=== PATIENT | male | born 1960 | race Two or more races ===

== ENCOUNTER 2017-02-27 11:49 | Emergency (ER) | payer MEDICAID, OTHER ==
[~2017-02-27] VITALS: Ht 177.8 cm; Wt 93.0 kg
--- NOTE | 2017-02-27 12:08 | NUR ---
CALLED RT FOR BREATHING TREATMENT
[2017-02-27] MEDS ORDERED: DEXAMETHASONE SOD PHOSPHATE 10 MG/ML VIAL ONE (12:12)
[2017-02-27] MEDS: DEXAMETHASONE SOD PHOSPHATE 10 MG/ML VIAL MC ONE (12:15)
[2017-02-27] MEDS ORDERED: IPRATROPIUM NEB FS 0.5 MG/2.5 ML AMPUL.NEB ONE (12:17)
[2017-02-27] MEDS ORDERED: ALBUTEROL FS 2.5 MG/3 ML VIAL.NEB ONE (12:17)
[2017-02-27] MEDS: ALBUTEROL FS 2.5 MG/3 ML VIAL.NEB NEB ONE (12:21)
[2017-02-27] MEDS: IPRATROPIUM NEB FS 0.5 MG/2.5 ML AMPUL.NEB NEB ONE (12:21)
--- NOTE | 2017-02-27 13:01 | NUR ---
Patient discharged to home in stable condition. Written and verbal after care instructions given. Patient verbalizes understanding of instruction.
[2017-02-27 13:03] VITALS: BP 120/77
== END 2017-02-27 13:03 | disposition home or self-care (01) ==
LOC: ER 11:51
DX: J40 Bronchitis, not specified as acute or chronic (principal); F43.10 Post-traumatic stress disorder, unspecified; F90.9 Attention-deficit hyperactivity disorder, unspecified type; J44.9 Chronic obstructive pulmonary disease, unspecified; M19.90 Unspecified osteoarthritis, unspecified site; F17.200 Nicotine dependence, unspecified, uncomplicated; F31.9 Bipolar disorder, unspecified
CPT/HCPCS: 71010; 94640; 99283; 99406; A4606; J1100; Z7610

== ENCOUNTER 2017-05-15 10:31 | Emergency (ER) | payer MEDICAID ==
[~2017-05-15] VITALS: Ht 177.8 cm; Wt 95.3 kg
--- NOTE | 2017-05-15 11:00 | NUR ---
C/O HEAD PAIN S/P FALL LAST NIGHT, COUGH X2 WKS, NAD NOTED, VSS, RESP EVEN AND UNLABORED, PT ON MONITOR.
[2017-05-15] MEDS ORDERED: ACETAMINOPHEN ES 500 MG TABLET ONE (11:24)
[2017-05-15] MEDS ORDERED: IBUPROFEN 600 MG TABLET PO ONE ×2 (11:24→11:30)
[2017-05-15] MEDS ORDERED: ACETAMINOPHEN ES 500 MG TABLET PO ONE (11:30)
--- NOTE | 2017-05-15 11:33 | NUR ---
PT REFUSED BLOOD DRAW, MADE AWARE.
[2017-05-15 12:58] VITALS: BP 129/72
--- NOTE | 2017-05-15 12:59 | NUR ---
Patient discharged to home in stable condition. Written and verbal after care instructions given. Patient verbalizes understanding of instruction. Prescription given
== END 2017-05-15 13:00 | disposition home or self-care (01) ==
LOC: ER 10:33
DX: S00.03XA Contusion of scalp, initial encounter (principal); R55 Syncope and collapse; J40 Bronchitis, not specified as acute or chronic; M19.90 Unspecified osteoarthritis, unspecified site; F90.9 Attention-deficit hyperactivity disorder, unspecified type; F31.9 Bipolar disorder, unspecified; F20.9 Schizophrenia, unspecified; F17.200 Nicotine dependence, unspecified, uncomplicated; X58.XXXA Exposure to other specified factors, initial encounter; Y93.89 Activity, other specified; Y92.89 Other specified places as the place of occurrence of the external cause; Y99.8 Other external cause status
CPT/HCPCS: 70450; 71045; 93005; 99284; A4606; Z7610

== ENCOUNTER 2017-05-19 10:50 | Emergency (ER) | payer MEDICAID ==
[~2017-05-19] VITALS: Ht 177.8 cm; Wt 95.3 kg
--- NOTE | 2017-05-19 12:10 | NUR ---
Pt ambulatory with a steady gait. vss.
[2017-05-19 12:19] VITALS: BP 151/122
--- NOTE | 2017-05-19 12:19 | NUR ---
Patient discharged to home in stable condition. Written and verbal after care instructions given. Patient verbalizes understanding of instruction.
== END 2017-05-19 12:20 | disposition home or self-care (01) ==
LOC: ER 10:52
DX: F07.81 Postconcussional syndrome (principal); R51 Headache; F43.10 Post-traumatic stress disorder, unspecified; F90.9 Attention-deficit hyperactivity disorder, unspecified type; M19.90 Unspecified osteoarthritis, unspecified site; F31.9 Bipolar disorder, unspecified; F12.10 Cannabis abuse, uncomplicated; F17.200 Nicotine dependence, unspecified, uncomplicated
CPT/HCPCS: 70450; 99284; A4606; Z7610

== ENCOUNTER 2017-06-26 15:01 | Emergency (ER) | payer MEDICAID ==
[~2017-06-26] VITALS: Ht 177.8 cm; Wt 95.3 kg
[2017-06-26 15:12] VITALS: BP 161/106
== END 2017-06-26 16:39 | disposition home or self-care (01) ==
LOC: ER 15:03
DX: M79.81 Nontraumatic hematoma of soft tissue (principal); R22.32 Localized swelling, mass and lump, left upper limb; M19.90 Unspecified osteoarthritis, unspecified site; F20.9 Schizophrenia, unspecified; F31.9 Bipolar disorder, unspecified; F90.9 Attention-deficit hyperactivity disorder, unspecified type; F43.10 Post-traumatic stress disorder, unspecified; F17.200 Nicotine dependence, unspecified, uncomplicated
CPT/HCPCS: 99284; A4606; Z7610

== ENCOUNTER 2017-08-29 03:39 | Emergency (ER) | payer MEDICAID ==
[~2017-08-29] VITALS: Ht 177.8 cm; Wt 90.7 kg
--- NOTE | 2017-08-29 03:50 | NUR ---
BBRA 909 FROM BUS STOP C/C +SI WITHOUT PLAN, -HI. PT IS AAOX4. VSS. NO ACUTE DISTRESS NOTED. RESP EVEN AND UNLABORED. SKIN WNL. SI PRECAUTIONS IN PLACE. PT PLACED ON MONITOR AND POX. PT SAFETY AND COMFORT MEASURES IN PLACE. MD BEDSIDE FOR EVAL.
[2017-08-29 04:14] LABS: BASOPHILS % (AUTO) 0.5 % (0.0-2.0); EOSINOPHILS % (AUTO) 1.9 % (0.0-6.0); HEMATOCRIT 45 % (39-51); HEMOGLOBIN 14.9 g/dL (13.5-17.5); LYMPHOCYTES # (AUTO) 1.8 /CMM (0.8-4.8); LYMPHOCYTES % (AUTO) 29.4 % (20.0-44.0); MEAN CORPUSCULAR HEMOGLOBIN 32 PG (26.0-33.0); MEAN CORPUSCULAR HGB CONC 33 g/dl (31.0-36.0); MEAN CORPUSCULAR VOLUME 94 fL (80-96); MONOCYTES # (AUTO) 0.7 /CMM (0.1-1.30); MONOCYTES % (AUTO) 11.3 % (2.0-12.0); NEUTROPHILS # (AUTO) 3.6 /CMM (1.8-8.9); NEUTROPHILS % (AUTO) 56.9 % (43.0-81.0); PLATELET COUNT (AUTO) 242 /CMM (150-450); RDW COEFFICIENT OF VARIATION 13.6 (11.5-15.0); RED BLOOD CELL COUNT(AUTO) 4.75 MIL/uL (4.5-6.0); WHITE BLOOD COUNT (AUTO) 6.3 K/uL (4.3-11.0)
--- NOTE | 2017-08-29 04:14 | NUR ---
UPON FURTHER EVAL, PT STATES HE IS +SI WITH PLAN TO OD ON HEROIN. PT STATES HE USED HEROIN 3 WEEKS AGO AND METH 3 DAYS AGO. MD BEDSIDE AND AWARE. PT WAS GIVEN A SANDWITCH AND JUICE. WILL CONTINUE TO MONITOR PT.
[2017-08-29 04:16] LABS: APPEARANCE,URINE CLEAR (CLEAR); BILIRUBIN,URINE NEGATIVE (NEGATIVE); BLOOD, URINE NEGATIVE Ery/uL (NEGATIVE); COLOR,URINE YELLOW (YELLOW); KETONES,URINE NEGATIVE (NEGATIVE); LEUKOCYTE ESTERASE ,URINE NEGATIVE (NEGATIVE); NITRITE, URINE NEGATIVE (NEGATIVE); PROTEIN,URINE NEGATIVE (NEGATIVE); UGLUCOSE NEGATIVE (NEGATIVE); UROBILINOGEN,URINE 0.2 EU/dL (0.2)
[2017-08-29 04:32] LABS: ALANINE AMINOTRANSFERASE 54 U/L (12-78); ALBUMIN 3.9 g/dL (3.4-5.0); ALCOHOL, BLOOD < 3 mg/dL (0-0); ALKALINE PHOSPHATASE 123 U/L (46-116); ASPARTATE AMINOTRANSFERASE 44 U/L (15-37); BILIRUBIN,DIRECT 0.1 mg/dL (0.0-0.2); BILIRUBIN,TOTAL 0.4 mg/dL (0.2-1.0); CALCIUM, SERUM 9.4 mg/dL (8.5-10.1); CARBON DIOXIDE 28 mmol/L (21-32); CHLORIDE 104 mmol/L (98-107); GLUCOSE 92 mg/dL (74-106); POTASSIUM 3.9 mmol/L (3.5-5.1); SALICYLATE 1.9 mg/dL (2.8-20.0); SODIUM SERUM 139 mmol/L (136-145); TOTAL PROTEIN, SERUM 7.9 g/dL (6.4-8.2); UREA NITROGEN, BLOOD 21 mg/dL (7-18)
[2017-08-29 04:33] LABS: ACETAMINOPHEN 0 ug/ml (10-30)
--- NOTE | 2017-08-29 04:50 | NUR ---
pt resting in bed with no s/s of distress noted
[2017-08-29] MEDS ORDERED: NAPROXEN 250 MG TABLET PO ONE (06:00)
--- NOTE | 2017-08-29 06:10 | NUR ---
Patient is resting comfortably in bed with eyes closed. Easily aroused. VSS
[2017-08-29] MEDS ORDERED: NAPROXEN 250 MG TABLET ONE (06:18)
[2017-08-29] MEDS ORDERED: IBUPROFEN 600 MG TABLET PO ONE ×2 (06:38→07:00)
--- NOTE | 2017-08-29 07:15 | NUR ---
REPORT GIVEN TO KRISTY FARIA FOR IRVIN
--- NOTE | 2017-08-29 07:16 | NUR ---
RECEIVED REPORT FOR IRVIN.
--- NOTE | 2017-08-29 07:35 | NUR ---
Patient discharged to home in stable condition. Written and verbal after care instructions given. Patient verbalizes understanding of instruction. Pt ambulatory with a steady gait.
[2017-08-29 07:43] VITALS: BP 136/78
== END 2017-08-29 07:44 | disposition home or self-care (01) ==
LOC: ER 03:40
DX: R45.851 Suicidal ideations (principal); M19.90 Unspecified osteoarthritis, unspecified site; F20.9 Schizophrenia, unspecified; F90.9 Attention-deficit hyperactivity disorder, unspecified type; F43.10 Post-traumatic stress disorder, unspecified; F31.9 Bipolar disorder, unspecified; F17.200 Nicotine dependence, unspecified, uncomplicated
CPT/HCPCS: 36415; 80048; 80076; 80305; 80329; 81001; 85025; 99284; A4606; G0480 ×2; Z7610; 81000-TC

== ENCOUNTER 2019-05-30 12:19 | Emergency (ER) | payer MEDICAID ==
[~2019-05-30] VITALS: Ht 177.8 cm; Wt 90.7 kg
--- NOTE | 2019-05-30 12:28 | NUR ---
PT BIBRA FROM HOME TO ER BED 06 C/O WEAKNESS, DIZZINESS AND FEELING FAINT TODAY. PT STATES HX OF VERTIGO. DENIES CHEST PAIN OR SOB. PLACED ON MONITOR. AWAITING MD MATTHEWS.
--- NOTE | 2019-05-30 12:38 | NUR ---
Luis alves in [facility] - 05/30/[address] at [address] HUYNH AT [facility] FOR BLOOD DRAW.
--- NOTE | 2019-05-30 12:38 | NUR ---
DR HUYNH AT BEDSIDE FOR BLOOD DRAW.
[2019-05-30] MEDS ORDERED: IV NS 0.9% 1,000 ML BAG IV ONE (13:00)
--- NOTE | 2019-05-30 13:00 | NUR ---
IV LINE STARTED BLOOD DRAWN AND SENT TO LAB.
[2019-05-30 13:13] LABS: BASOPHILS # (AUTO) 0.1 /CMM (0.0-0.2); BASOPHILS % (AUTO) 0.5 % (0.0-2.0); EOSINOPHILS % (AUTO) 0.4 % (0.0-6.0); HEMATOCRIT 46 % (39-51); HEMOGLOBIN 15.4 g/dL (13.5-17.5); LYMPHOCYTES % (AUTO) 9.4 % (20.0-44.0); MEAN CORPUSCULAR HGB CONC 34 g/dl (31.0-36.0); MEAN CORPUSCULAR VOLUME 95 fL (80-96); MONOCYTES # (AUTO) 0.6 /CMM (0.1-1.30); MONOCYTES % (AUTO) 5.6 % (2.0-12.0); NEUTROPHILS % (AUTO) 84.1 % (43.0-81.0); PLATELET COUNT (AUTO) 232 /CMM (150-450); RED BLOOD CELL COUNT(AUTO) 4.82 MIL/uL (4.5-6.0); WHITE BLOOD COUNT (AUTO) 10.7 K/uL (4.3-11.0)
[2019-05-30 13:21] LABS: CALCIUM, SERUM 9.4 mg/dL (8.5-10.1); CARBON DIOXIDE 29 mmol/L (21-32); CHLORIDE 105 mmol/L (98-107); CREATININE 1.1 mg/dL (0.6-1.3); GLUCOSE 110 mg/dL (74-106); POTASSIUM 4.7 mmol/L (3.5-5.1); SODIUM SERUM 141 mmol/L (136-145); UREA NITROGEN, BLOOD 14 mg/dL (7-18)
[2019-05-30] MEDS ORDERED: MECLIZINE HCL 25 MG TABLET ONE (13:23)
[2019-05-30 13:26] LABS: ALANINE AMINOTRANSFERASE 64 U/L (12-78); ALBUMIN 3.7 g/dL (3.4-5.0); ALKALINE PHOSPHATASE 126 U/L (46-116); ASPARTATE AMINOTRANSFERASE 37 U/L (15-37); BILIRUBIN,DIRECT 0.1 mg/dL (0.0-0.2); BILIRUBIN,TOTAL 0.3 mg/dL (0.2-1.0); TOTAL PROTEIN, SERUM 7.4 g/dL (6.4-8.2)
[2019-05-30] MEDS ORDERED: MECLIZINE HCL 12.5 MG TABLET PO ONE (13:30)
--- NOTE | 2019-05-30 14:11 | NUR ---
Patient discharged to home in stable condition. Written and verbal after care instructions given. Patient verbalizes understanding of instruction.IV removed. Catheter intact and site benign. Pressure and 4x4 applied to site. No bleeding noted.
[2019-05-30 14:12] VITALS: BP 120/60
== END 2019-05-30 14:12 | disposition home or self-care (01) ==
LOC: ER 12:20
DX: R55 Syncope and collapse (principal); R42 Dizziness and giddiness; F43.10 Post-traumatic stress disorder, unspecified; F90.9 Attention-deficit hyperactivity disorder, unspecified type; F31.9 Bipolar disorder, unspecified; M19.90 Unspecified osteoarthritis, unspecified site; F17.200 Nicotine dependence, unspecified, uncomplicated
CPT/HCPCS: 36415; 71045; 80048; 80076; 84484; 85025; 93005 ×2; 96360; 99285; J7030; J8597